=== PATIENT | female | born 1995 ===

== ENCOUNTER 2019-05-04 08:43 | Emergency (ER) | payer BC, OTHER ==
--- NOTE | 2019-05-04 08:59 | ED ---
Neurological HPI - HPI Summary HPI Summary: This pt is a 23 y/o female presenting to [facility] c/o numbness to the left side of her face x3 days and numbness on left arm since this morning. Pt states hx of severe concussion 1 year ago and experienced numbness on left side of her face from this. Pt had a CT then that resulted negative. She notes numbness was somewhat frequent from June 2018 to September 2018 but these episodes of numbness only lasted a few hours. Pt has not had this numbness since then until 3 days ago. Pt reports she has been having constant left sided facial numbness for the past 3 days and yesterday it was the worst it has ever been. She describes usually numbness is around her left cheek but last night it radiated up to her left eye. She reports this morning she began to experience left arm numbness, described around left fingers and on the back of her left upper arm. Pt denies any pain anywhere. Per triage not, pt started new medication (Zoloft) 3 days ago. - History of Current Complaint Chief Complaint: EDNeurologicalDeficit Stated Complaint: NUMBNESS IN FACE AND ARM PER PT Time Seen by Provider: 05/04/19 08:54 Hx Obtained From: Patient Onset/Duration: Started days ago, Still Present Current Severity: Mild Neurological Deficit Location: Facial, LUE Pain Intensity: 0 Pain Scale Used: 0-10 Numeric Character: Numbness/Tingling - Numbness Aggravating: Nothing Alleviating: Nothing Associated Signs and Symptoms: Positive: Numbness. Negative: Fever - Allergy/Home Medications Allergies/Adverse Reactions: Allergies Allergy/AdvReac Type Severity Reaction Status Date / Time No Known Allergies Allergy Verified 05/04/19 08:48 Home Medications: Home Medications Sertraline* [Zoloft*] 25 mg PO DAILY 05/04/19 [History Confirmed 05/04/19] PMH/Surg Hx/FS Hx/Imm Hx Endocrine/Hematology History: Denies: Hx Diabetes Cardiovascular History: Denies: Hx Hypertension, Hx Pacemaker/ICD History: Denies: Hx Renal Disease Sensory History: Denies: Hx Hearing Aid Psychiatric History: Reports: Hx Anxiety, Hx Depression, Hx Post Traumatic Stress Disorder Denies: Hx Panic Disorder - Surgical History Surgical History: Yes Surgery Procedure, Year, and Place: Rt ELBOW - GROWTH PLATE FX - ALL METAL REMOVED NOW Infectious Disease History: No Infectious Disease History: Denies: Traveled Outside the [place] in Last 30 Days - Family History Known Family History: Positive: Non-Contributory - Social History Alcohol Use: None Substance Use Type: Reports: None Smoking Status (MU): Never Smoked Tobacco Review of Systems Negative: Fever, Chills ENT: Negative Cardiovascular: Negative Respiratory: Negative Positive: Numbness All Other Systems Reviewed And Are Negative: Yes Physical Exam - Summary Physical Exam Summary: Appearance: The patient is well-nourished in no acute distress and in no acute pain. Skin: The skin is warm and dry, and skin color reflects adequate perfusion. HEENT: The head is normocephalic and atraumatic. The pupils are equal and reactive. The conjunctivae are clear and without drainage. Nares are patent and without drainage. Mouth reveals moist mucous membranes, and the throat is without erythema and exudate. The external ears are intact. The ear canals are patent and without drainage. The tympanic membranes are intact. Neck: The neck is supple with full range of motion and non-tender. There are no carotid bruits. There is no neck vein distension. Respiratory: Chest is non-tender. Lungs are clear to auscultation and breath sounds are symmetrical and equal. Cardiovascular: Heart is regular rate and rhythm. There is no murmur or rub auscultated. There is no peripheral edema and pulses are symmetrical and equal. Abdomen: The abdomen is soft and non-tender. There are normal bowel sounds heard in all four quadrants and there is no organomegaly palpated. Musculoskeletal: There is no back tenderness noted. Extremities are non-tender with full range of motion. There is good capillary refill. There is no peripheral edema or calf tenderness elicited. Neurological: Patient is alert and oriented to person, place and time. The patient has symmetrical motor strength in all four extremities. Cranial nerves are grossly intact. Deep tendon reflexes are symmetrical and equal in all four extremities. Psychiatric: The patient has an appropriate affect and does not exhibit any anxiety or depression. Triage Information Reviewed: Yes Vital Signs On Initial Exam: Initial Vitals Temp Pulse Resp BP Pulse Ox 98.9 F 74 16 126/91 97 05/04/19 08:44 05/04/19 08:44 05/04/19 08:44 05/04/19 08:44 05/04/19 08:44 Vital Signs Reviewed: Yes Diagnostics - Vital Signs Vital Signs Temp Pulse Resp BP Pulse Ox 05/04/19 08:44 98.9 F 74 16 126/91 97 - Laboratory Lab Statement: Any lab studies that have been ordered have been reviewed, and results considered in the medical decision making process. - CT Brain CT CT Interpretation Completed By: Radiologist Summary of CT Findings: IMPRESSION: No acute intracranial pathology. Dr. Call has reviewed this report. Re-Evaluation - Re-Evaluation First Eval Re-Evaluation Time: 11:09 Comment: Discussed CT results with pt. Pt will be discharged home with follow up from Dr. Kaye. Course/Dx - Course Course Of Treatment: Ms. Echevarria had a traumatic head injury many months ago. Since that time she periodically has left sided lower facial numbness. It usually only lasts a couple hours and goes away on its own. The last 3 days she has had nonstop numbness in the same area which was worse than it ever had been last night. This morning she woke up with numbness in her left fourth and fifth fingers. She did start a new medication Zoloft 3 days ago. She was nontoxic in appearance with stable vital signs. On my evaluation she was neurologically intact. I spoke with Dr. Kaye who recommended CT brain an outpatient MRI with follow-up in his office. I recommended that she consider stopping the Zoloft is it's only been 3 days and there will be no down side. If her symptoms pasha discussed that with the provider who prescribed it. If her symptoms continue she could restart the medication. - Diagnoses Provider Diagnoses: Paresthesia - Physician Notifications Discussed Care Of Patient With: Osmar Kaye Time Discussed With Above Provider: 09:20 Instructed by Provider To: Other - Discussed with Dr. Kaye, neurologist. Discharge ED - Sign-Out/Discharge Documenting (check all that apply): Patient Departure - Discharge home Patient Received Moderate/Deep Sedation with Procedure: No - Discharge Plan Condition: Stable Disposition: HOME Patient Education Materials: Paresthesia (ED) Referrals: Karis Ocampo MD [Primary Care Provider] - Osmar Kaye MD [Medical Doctor] - Additional Instructions: Follow up with Dr. Kaye, neurologist. Call Dr. Kaye's office on Monday, , morning. RETURN TO THE ED FOR ANY WORSENING OR NEW SYMPTOMS. - Billing Disposition and Condition Condition: STABLE Disposition: Home - Attestation Statements Document Initiated by Raghavendra: Yes Documenting Scribe: Ara Delarosa Provider For Whom Raghavendra is Documenting (Include Credential): Anatoly Call MD Scribe Attestation: Ara Nichols, scribed for Anatoly Call MD on 05/04/19 at 1248. Scribe Documentation Reviewed: Yes Provider Attestation: The documentation as recorded by the Ara morgan accurately reflects the service I personally performed and the decisions made by me, Anatoly Call MD Status of Scribe Document: Viewed
[2019-05-04 11:21] VITALS: BP 114/54
== END 2019-05-04 11:15 | disposition home or self-care (01) ==
LOC: ED 08:43
DX: R20.2 Paresthesia of skin (principal); F41.9 Anxiety disorder, unspecified; F32.9 Major depressive disorder, single episode, unspecified; F43.10 Post-traumatic stress disorder, unspecified; Z79.899 Other long term (current) drug therapy
CPT/HCPCS: 70450; 99282